=== PATIENT | female | born 1955 | race Caucasian/White ===

== ENCOUNTER 2016-05-27 11:07 | Inpatient (IN) | payer OTHER ==
[~2016-05-27] VITALS: Ht 167.6 cm; Wt 115.7 kg
--- NOTE | ~2016-05-27 | HC ---
[facility] [place] [address] CONSULTATION Name: ELIZABETH SANDHU Room #: 423-1 [facility] IN M.R.#: [id number] Admission: 05/27/16 Attend Phys: Manohar Perea MD Discharge: 05/29/16 Date of : 53 Report #: [id number] THIS REPORT FOR: //name// CC: Chris Perea DATE OF SERVICE: 05/28/2016 HISTORY OF PRESENT ILLNESS: This is a 60-year-old female patient who was evaluated by me for headache and some visual disturbances. I told the patient clearly at the beginning that I do not do any trauma and that is done by neurosurgeons and no neurosurgeon comes here. I will confine myself to the neurology aspect of it, which is limited. This patient indicates that for a long time she has difficulty assessing the curbs. She has become careful. It has been present all her life. This time, she was not that careful and she fell down. She hit her head. Initially, she was nauseous. She lost consciousness for a small period of time. Then, she became better. She was having some nonspecific visual disturbances today that she was not able to read with both eyes and she thought there may have been some problem with. She never had this kind of symptoms. She does not know whether the symptom becomes better or worse with anything. REVIEW OF SYSTEMS: Indicate that this patient is healthy and she had these above-described symptoms after a fall. 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 It looks like she did loose some consciousness when it happened. I carried out a 14-point review of system. It was mostly noncontributory. She has some problems like thyroid, parathyroid. She had atrial fibrillation and indicates that sometime ago, she did have a TIA, where she had some speech difficulty and problem on the right side, but the symptom resolved. This was her relevant 14-point review of system. PAST MEDICAL HISTORY: Positive for atrial fibrillation. FAMILY HISTORY: Negative for early age stroke. SOCIAL HISTORY: She drinks alcohol very rarely. She does not smoke. PHYSICAL EXAMINATION: NEUROLOGIC: The patient's examination indicates she is alert, responsive and oriented. Her speech, concentration, fund of knowledge and memory are at her baseline. Cranial nerve examination 2-12 was mostly unremarkable. I could not have a very good look at the fundus on the right side, but otherwise, I do not see anything which can explain her symptoms. She has symmetrical strength, sensation and reflexes in all 4 extremities, but reflexes in the lower extremity is diminished and I could not elicit them. Tone looks symmetrical. There is no carotid bruit in this patient. [place] [address] CONSULTATION Name: ELIZABETH SANDHU Room #: 423-1 [facility] IN M.R.#: [id number] Admission: 05/27/16 Attend Phys: Manohar Perea MD Discharge: 05/29/16 Date of : 53 Report #: [id number] GENERAL: She is a well-developed individual who does not have any dysmorphic features of eyes, ears or face. HEENT: She can see things and hearing is adequate. HEART: She does not have any abnormality of the heart sound or any murmur. LUNGS: She does not have any respiratory difficulty. VITAL SIGNS: Indicate a blood pressure of 124/61, respiration is 16, pulse is 60 and temperature is 98.2. LABORATORY DATA: Lab indicates hemoglobin of 7.3. She did have an MRI done and the MRI looks mostly unremarkable. She had a high sed rate at one time and it is 35, which is a trace high, but not very high. IMPRESSION: 1. Closed head injury that should be addressed by neurosurgery. 2. Nonspecific neurological symptoms, which I do not think for which any neurological etiology is there. She does have a slightly high sed rate, but I do not think she has a temporal arteritis. RECOMMENDATIONS: 1. Ophthalmology consult if it can be done. 2. MRI is already unremarkable. 3. If she continued to be symptomatic, we might consider repeating CT scan. 4. I more trauma-related questions need to be addressed, then I think she will need an appointment with neurosurgery because no neurosurgeon comes here. Thank you very much for this referral. <ELECTRONICALLY SIGNED> By: Jeronimo De Dios MD 05/31/16 [id number] Jeronimo De Dios MD /nt
[~2016-05-27 11:07] MED LIST: ASPIRIN325 PO; BAYER CHEWABLE81 MG PO; BYSTOLIC 5 MG5 M1 PO; CALCITRIOL0.5 MCG PO; CALCIUM 1,0001 EACH; CALCIUM 600 +1 EA11 PO; COUMADIN 4 MG TA4 M1 PO; ENOXAPARIN150 MG/11 SUBQ; NORCO 5-325 TA1 EACH PO; SYNTHROID200 MCG PO; SYNTHROID25 MCG; SYNTHROID25 MCG PO; SYNTHROID300 MCG; XARELTO15 MG PO; ZOFRAN ODT4 MG PO
[2016-05-27 11:08] VITALS: BP 153/74
[2016-05-27] MEDS ORDERED: LIPITOR 20 MG T20 M1 PO (11:12)
[2016-05-27 11:47] LABS: HEMATOCRIT 41.7 % (37.0-47.0); MCH 28.8 pg (26.0-34.0); MCHC 33.6 g/dL (28.0-37.0); MCV 85.8 fL (80.0-100.0); RBC 4.86 mil/uL (4.20-5.00); RDW 14.7 % (10.5-14.5); WBC 7.3 thou/uL (4.0-11.0)
[2016-05-27 11:52] LABS: CALCIUM 9.7 mg/dL (8.5-10.1); CREATININE 0.8 mg/dL (0.6-1.3)
[2016-05-27 11:56] LABS: POTASSIUM 4.2 mmol/L (3.5-5.1)
[2016-05-27 11:57] LABS: ALBUMIN 3.4 g/dL (3.4-5.0); TOTAL BILIRUBIN 0.6 mg/dL (<0.1-1.0); TOTAL PROTEIN 7.6 g/dL (6.4-8.2)
[2016-05-27 12:01] LABS: APTT 35.4 Seconds (24.5-32.8); INR 1.1; PROTIME 11.4 Seconds (9.3-11.4)
[2016-05-27] MEDS ORDERED: TRAMADOL 50 MG50 MG PO (12:33)
[2016-05-27 16:18] VITALS: BP 177/90
[2016-05-27 16:35] VITALS: BP 187/78
[2016-05-27 20:00] VITALS: BP 159/93; BP 203/76
[2016-05-27 21:00] VITALS: BP 158/94
[2016-05-28 04:00] VITALS: BP 105/44
[2016-05-28 04:50] VITALS: BP 105/44
[2016-05-28 07:26] VITALS: BP 130/75
[2016-05-28 10:54] LABS: TSH 1.441 uIU/mL (0.358-3.740)
[2016-05-28 15:05] VITALS: BP 124/61
[2016-05-28 20:00] VITALS: BP 106/55
[2016-05-29 04:53] VITALS: BP 118/50
[2016-05-29 05:47] LABS: HEMATOCRIT 37.5 % (37.0-47.0); HEMOGLOBIN 12.7 gm/dL (12.0-15.0); MCH 29.1 pg (26.0-34.0); MCHC 33.8 g/dL (28.0-37.0); MCV 86.2 fL (80.0-100.0); RBC 4.35 mil/uL (4.20-5.00); RDW 14.3 % (10.5-14.5); WBC 7.4 thou/uL (4.0-11.0)
[2016-05-29 06:06] LABS: CALCIUM 9.4 mg/dL (8.5-10.1); CREATININE 0.8 mg/dL (0.6-1.3); POTASSIUM 3.6 mmol/L (3.5-5.1)
[2016-05-29 07:55] VITALS: BP 151/74
[2016-05-29 12:52] VITALS: BP 151/74
== END 2016-05-29 13:45 | disposition home or self-care (01) | DRG 605 ==
LOC: ER 11:07 → EROBS 14:18 → 4E 14:18
PROVIDERS: Emergency Medicine; Family Medicine; Psychiatry & Neurology Neuromuscular Medicine
DX: S00.93XA Contusion of unspecified part of head, initial encounter (principal); Z68.41 Body mass index [BMI] 40.0-44.9, adult; E89.0 Postprocedural hypothyroidism; I48.91 Unspecified atrial fibrillation; K59.00 Constipation, unspecified; S40.011A Contusion of right shoulder, initial encounter; S70.01XA Contusion of right hip, initial encounter; E66.9 Obesity, unspecified; W18.39XA Other fall on same level, initial encounter; Y93.89 Activity, other specified; Y92.89 Other specified places as the place of occurrence of the external cause; Z86.73 Personal history of transient ischemic attack (TIA), and cerebral infarction without residual deficits; Z90.710 Acquired absence of both cervix and uterus; Z90.49 Acquired absence of other specified parts of digestive tract; Z88.0 Allergy status to penicillin; Z88.1 Allergy status to other antibiotic agents; Z79.82 Long term (current) use of aspirin; Z79.899 Other long term (current) drug therapy; Y99.8 Other external cause status
CPT/HCPCS: 10183

== ENCOUNTER 2019-01-18 16:16 | Emergency (ER) | payer OTHER ==
[~2019-01-18] VITALS: Ht 167.6 cm; Wt 129.3 kg
[~2019-01-18 16:16] MED LIST changes: +LIPITOR 20 MG T20 M1 PO; +TRAMADOL 50 MG50 MG PO
[2019-01-18] MEDS ORDERED: CYCLOBENZAPRINE5 MG PO (18:09)
[2019-01-18] MEDS ORDERED: NORCO 5-325 TA1 EAC1 PO (18:09)
[2019-01-18 18:18] VITALS: BP 115/64
== END 2019-01-18 18:26 | disposition home or self-care (01) ==
LOC: ER 16:16
DX: M54.2 Cervicalgia (principal); R51 Headache; I48.91 Unspecified atrial fibrillation; Z86.73 Personal history of transient ischemic attack (TIA), and cerebral infarction without residual deficits; Z90.710 Acquired absence of both cervix and uterus; Z90.49 Acquired absence of other specified parts of digestive tract; Z88.0 Allergy status to penicillin; Z88.1 Allergy status to other antibiotic agents; V49.49XA Driver injured in collision with other motor vehicles in traffic accident, initial encounter; Y93.89 Activity, other specified; Y92.411 Interstate highway as the place of occurrence of the external cause; Y99.8 Other external cause status

== ENCOUNTER 2019-01-22 10:22 | Emergency (ER) | payer OTHER ==
[~2019-01-22] VITALS: Ht 167.6 cm; Wt 129.3 kg
[~2019-01-22 10:22] MED LIST changes: +CYCLOBENZAPRINE5 MG PO; +NORCO 5-325 TA1 EAC1 PO
[2019-01-22 13:19] LABS: ABSOLUTE NEUTROPHILS 5.1 thou/uL (1.4-8.2); EOSINOPHILS 3.8 % (0.0-3.0); HEMATOCRIT 48.5 % (37.0-47.0); HEMOGLOBIN 15.3 gm/dL (12.0-15.0); LYMPHOCYTES 25.2 % (24.0-44.0); MCHC 31.6 g/dL (28.0-37.0); MCV 91.6 fL (80.0-100.0); MONOCYTES 6.9 % (1.0-8.0); PLATELET COUNT 251 thou/uL (150-400); POLYS 63.1 % (36.0-66.0); RBC 5.29 mil/uL (4.20-5.00); RDW 14.4 % (10.5-14.5); WBC 8.1 thou/uL (4.0-11.0)
[2019-01-22 13:25] LABS: CALCIUM 9.9 mg/dL (8.5-10.1); CREATININE 0.7 mg/dL (0.6-1.0)
[2019-01-22 13:31] LABS: POTASSIUM 4.5 mmol/L (3.5-5.1)
[2019-01-22 14:30] VITALS: BP 133/64
== END 2019-01-22 14:30 | disposition home or self-care (01) ==
LOC: ER 10:22
PROVIDERS: Emergency Medicine
DX: H53.8 Other visual disturbances (principal); I48.91 Unspecified atrial fibrillation; Z90.89 Acquired absence of other organs; Z98.890 Other specified postprocedural states; Z88.0 Allergy status to penicillin

== ENCOUNTER 2020-08-14 15:37 | Emergency (ER) | payer OTHER ==
[~2020-08-14] VITALS: Ht 167.6 cm; Wt 136.5 kg
[2020-08-14 18:43] LABS: ABSOLUTE NEUTROPHILS 6.3 thou/uL (1.4-8.2); BASOPHILS 0.7 % (0.0-2.0); EOSINOPHILS 3.9 % (0.0-3.0); HEMATOCRIT 48.7 % (37.0-47.0); HEMOGLOBIN 16.1 gm/dL (12.0-15.0); LYMPHOCYTES 20.5 % (24.0-44.0); MCH 30.5 pg (26.0-34.0); MCV 92.4 fL (80.0-100.0); MONOCYTES 6.2 % (1.0-8.0); PLATELET COUNT 304 thou/uL (150-400); POLYS 68.7 % (36.0-66.0); RBC 5.28 mil/uL (4.20-5.00); RDW 15.1 % (10.5-14.5); WBC 9.2 thou/uL (4.0-11.0)
[2020-08-14 18:51] LABS: INR 0.98; PROTIME 10.7 Seconds (10.5-12.1)
[2020-08-14 20:21] LABS: ALBUMIN 3.3 g/dL (3.4-5.0); ANION GAP 10 mmol/L (7-16); BUN 13 mg/dL (7-18); CALCIUM 9.4 mg/dL (8.5-10.1); CHLORIDE 105 mmol/L (98-107); CO2 26 mmol/L (21-32); CREATININE 0.8 mg/dL (0.6-1.0); GLUCOSE 91 mg/dL (74-106); POTASSIUM 3.8 mmol/L (3.5-5.1); SGOT 22 U/L (15-37); SGPT 35 U/L (30-65); SODIUM 141 mmol/L (136-145); TOTAL BILIRUBIN 0.6 mg/dL (0.2-1.0); TOTAL PROTEIN 7.2 g/dL (6.4-8.2); TROPONIN-I <0.06 ng/mL (<0.06)
[2020-08-14 21:20] VITALS: BP 185/94
--- NOTE | 2020-08-15 07:22 | EKG ---
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: MARIANA KELLER : 1955 Requested By: Angeles Manzano Order Number: [id number] MD: Camilo Gonzalez Measurements Intervals [place] Rate: 80 P: SD: QRS: 27 QRSD: 74 T: -21 QT: 355 QTc: 410 Interpretive Statements Atrial fibrillation Low voltage, precordial leads Probable anteroseptal infarct, old Borderline T abnormalities, inferior leads Compared to ECG 12/22/2012 16:27:59 T-wave abnormality now present Sinus bradycardia no longer present Myocardial infarct finding still present Electronically Signed On 08-15-2020 7:21:56 CDT by Camilo Gonzalez [email or web address] <ELECTRONICALLY SIGNED> By: Camilo Gonzalez MD, [facility] 08/15/20 0721 1906 1906 Camilo Gonzalez MD, [facility] /EPI
== END 2020-08-14 21:20 | disposition home or self-care (01) ==
LOC: ER 15:37
PROVIDERS: Emergency Medicine
DX: R60.0 Localized edema (principal); I48.91 Unspecified atrial fibrillation; Z88.0 Allergy status to penicillin; Z88.1 Allergy status to other antibiotic agents; Z79.82 Long term (current) use of aspirin; Z79.899 Other long term (current) drug therapy; Z86.73 Personal history of transient ischemic attack (TIA), and cerebral infarction without residual deficits; Z90.710 Acquired absence of both cervix and uterus